=== PATIENT | male | born 1955 | race Caucasian/White ===

== ENCOUNTER 2018-04-15 10:38 | Emergency (ER) | payer BC, OTHER ==
[2018-04-15 11:08] VITALS: BP 153/103
--- NOTE | 2018-04-15 12:16 | UC ---
Shoulder Pain HPI - HPI Summary HPI Summary: 62 year old male presents with onset of posterior left shoulder pain last evening. Describes pain constant "ache" located in the scapular region. Pain does worsen with movement. States became more "bothersome" during the night and felt as if pain radiated through to mid chest and down left arm however this pain resolved on its own. Denies fever, chills, palpitations, cough, shortness of breath, diaphoresis, abdominal pain, nausea, vomiting, calf pain or swelling. He denies any injury however does report recently working with a [employer]. He also relates several recent flight to [place] [employer]. - History of Current Complaint Chief Complaint: UCUpperExtremity Stated Complaint: SHOULDER PAIN DOWN BACK Time Seen by Provider: 04/15/18 11:49 Hx Obtained From: Patient Onset/Duration: Sudden Onset, Lasting Hours Timing: Constant Severity Currently: Moderate Pain Intensity: 5 Character: Aching Aggravating Factor(s): Movement Alleviating Factor(s): Nothing - Allergies/Home Medications Allergies/Adverse Reactions: Allergies Allergy/AdvReac Type Severity Reaction Status Date / Time No Known Allergies Allergy Verified 04/15/18 12:55 PMH/Surg Hx/FS Hx/Imm Hx Previously Healthy: Yes - Denies signifcant PMH - Surgical History Surgical History: Yes Surgery Procedure, Year, and Place: hernia - Family History Known Family History: Positive: Cardiac Disease, Hypertension Negative: Blood Disorder - Social History Occupation: Employed Full-time Lives: With Family Alcohol Use: Occasionally Substance Use Type: Marijuana Smoking Status (MU): Never Smoked Tobacco Review of Systems Constitutional: Negative Skin: Negative Respiratory: Negative Cardiovascular: Chest Pain Gastrointestinal: Negative Motor: Negative Neurovascular: Negative Musculoskeletal: Other: - See HPI Is Patient Immunocompromised?: No All Other Systems Reviewed And Are Negative: Yes Physical Exam Triage Information Reviewed: Yes Appearance: Well-Appearing, No Pain Distress, Well-Nourished Vital Signs: Initial Vital Signs Temp 98 F 04/15/18 11:02 Pulse 76 04/15/18 11:02 Resp 16 04/15/18 11:02 BP 153/103 04/15/18 11:02 Pulse Ox 99 04/15/18 11:02 Vital Signs Reviewed: Yes Neck: Positive: Supple, Nontender, No Lymphadenopathy Respiratory: Positive: Chest non-tender, Lungs clear, Normal breath sounds, No respiratory distress Cardiovascular: Positive: RRR, No Murmur, Pulses Normal, Brisk Capillary Refill Abdomen Description: Positive: Nontender, No Organomegaly, Soft. Negative: Distended, Guarding Musculoskeletal: Positive: Strength Intact, ROM Intact, Other: - Tenderness left scapula. Full ROM with mild pain. Neurological: Positive: Alert Skin Exam: Normal Shoulder Course/Dx - Course Course Of Treatment: 62 year old male presents with onset of left scapular back pain that worsened and radiated into chest and left arm during the night. States the chest and arm pain resolved but back pain has persisted. Exam was unremarkable except for mild left scapular tenderness and mildly painful ROM and hypertension. EKG NSR. Patient has family history of CAD and recent multiple long flights to [place]. I suspect that his symptoms are musculoskeletal in origin however cannot exclude cardiopulmonary origin therefore recommending further evaluation in the ED. Patient verbalizes understanding and elects to transfer via private vehicle. - Differential Dx/Diagnosis Differential Diagnosis/HQI/PQRI: Contusion, Rotator Cuff Injury, Strain, Other - CAD Provider Diagnoses: Left shoulder pain - Physician Notification/Consults Discussed Patient Care With: PINA Jose Time Discussed With Above Provider: 12:40 Instructed by Provider To: MD Will See In ED Discharge - Sign-Out/Discharge Documenting (check all that apply): Patient Departure All imaging exams completed and their final reports reviewed: No Studies - Discharge Plan Condition: Stable Disposition: HOME-RECOMMEND TO ED Patient Education Materials: Shoulder Pain (ED) Referrals: No Primary Care Phys,NOPCP [Primary Care Provider] - Additional Instructions: With your family history of hear problems, the elevated blood pressure in the clinic today, and your recent travel I am recommending that you be evaluated further in the emergency room at this time. Go directly to the emergency room for evalution. - Billing Disposition and Condition Condition: STABLE Disposition: Home-Recommend to ED
== END 2018-04-15 12:25 | disposition home health service (06) ==
LOC: UCEAST 10:38
DX: M25.512 Pain in left shoulder (principal)
CPT/HCPCS: 93005; 99201; G0463

== ENCOUNTER 2018-04-15 12:53 | Emergency (ER) | payer BC ==
[2018-04-15 14:59] LABS: ABS Basophils 0.1 10^3/ul (0-0.2); ABS Eosinophils 0.1 10^3/ul (0-0.6); ABS Lymphocytes 2.1 10^3/ul (1.0-4.8); ABS Monocytes 0.3 10^3/ul (0-0.8); ABS Neutrophils 5.4 10^3/ul (1.5-7.7); ABS Nucleated RBC 0 10^3/ul; Eosinophil % 1.7 % (0-6); Hematocrit 45 % (42-52); Hemoglobin 15.4 g/dl (14.0-18.0); Lymphocyte % 25.7 % (25-47); Mean Corpuscular HGB Conc 35 g/dl (31-36); Mean Corpuscular Hemoglobin 30 pg (27-31); Mean Corpuscular Volume 86 fL (80-94); Mean Platelet Volume 7.8 fL (7.4-10.4); Nucleated Red Blood Cells % 0.1; Platelet Count 242 10^3/ul (150-450); Red Blood Count 5.18 10^6/ul (4.00-5.40); Red Cell Distribution Width 13 % (10.5-15)
--- NOTE | 2018-04-15 15:18 | RAD ---
HISTORY: chest pain COMPARISONS: None VIEWS: 4: Frontal dual-energy and lateral views of the chest. FINDINGS: CARDIOMEDIASTINAL SILHOUETTE: The cardiomediastinal silhouette is normal. BRIDGER: The bridger are normal. PLEURA: The costophrenic angles are sharp. No pleural abnormalities are noted. LUNG PARENCHYMA: The lungs are clear. ABDOMEN: The upper abdomen is clear. There is no subphrenic gas. BONES AND SOFT TISSUES: No bone or soft tissue abnormalities are noted. OTHER: None. IMPRESSION: NO ACTIVE CARDIOPULMONARY DISEASE.
[2018-04-15 15:30] LABS: EGFR Non-African American 93.2 (>60)
--- NOTE | 2018-04-15 15:41 | ED ---
HPI Chest Pain - HPI Summary HPI Summary: A 62 y/o male presents to the ED c/o CP since 04/15/2018. He rates his pain as 6/ 10. He also states that he has left arm and shoulder pain. He states that his BP was high recently. He denies fever, chills, GERMAIN, ear pain, sore throat, blurred vision, double vision, neck pain, SOB, ABD pain, back pain, dysuria, hematuria, blood in the stool, constipation, edema, bruising, nausea, vomiting and rashes. He is a non-smoker and drinks occasionally. He admits to being anxious. - History of Current Complaint Chief Complaint: EDExtremityUpper Hx Obtained From: Patient Onset/Duration: Started Hours Ago Timing: Constant Initial Severity: Moderate Current Severity: Moderate Pain Intensity: 6 Pain Scale Used: 0-10 Numeric Chest Pain Location: Diffuse Chest Pain Radiates To:: Shoulder, Arm Associated Signs and Symptoms: Positive: Other: - arm and shoulder pain - Allergy/Home Medications Allergies/Adverse Reactions: Allergies Allergy/AdvReac Type Severity Reaction Status Date / Time No Known Allergies Allergy Verified 04/15/18 12:55 Home Medications: Home Medications Ibuprofen TAB* [Advil TAB*] 600 mg PO Q8H PRN 04/15/18 [History Confirmed ] PMH/Surg Hx/FS Hx/Imm Hx Endocrine/Hematology History: Reports: Hx Thyroid Disease - Surgical History Surgery Procedure, Year, and Place: hernia Infectious Disease History: No Infectious Disease History: Reports: Traveled Outside the [place] in Last 30 Days - [place] - Social History Alcohol Use: Daily Substance Use Type: Reports: Marijuana Smoking Status (MU): Former Smoker Review of Systems Negative: Fever, Chills Eyes: Negative - Double vision Negative: Blurred Vision ENT: Negative - Throat pain Negative: Sore Throat, Ear Ache Positive: Chest Pain Negative: Shortness Of Breath Gastrointestinal: Negative - Constipation, blood in stool Negative: Abdominal Pain, Vomiting, Nausea Negative: dysuria, hematuria Musculoskeletal: Negative - back pain Positive: Myalgia - Arm and shoulder pain. Negative: Edema Negative: Rash, Bruising Negative: Headache Positive: Anxious All Other Systems Reviewed And Are Negative: No Physical Exam - Summary Physical Exam Summary: Appearance: Alert, conversive, nontoxic appearing Skin: Warm, dry, no mottling, no rashes, no contusions HEENT: EOMI, PERRL, moist mucous membranes Neck: No masses on the neck, supple Respiratory: Clear to auscultation, breath sounds present, no rales, no rhonchi , no wheezes Cardiovascular: RRR, pulses are symmetrical in both lower and upper extremities Abdomen: Soft, non-tender Bowel Sounds: Present Musculoskeletal: No CVA tenderness, no obvious deformity, moving all extremities in a grossly normal manner Neurological: A&Ox3, CN II-XII Intact, moving all extremities symmetrically Psychiatric: anxious Triage Information Reviewed: Yes Vital Signs On Initial Exam: Initial Vitals Temp Pulse Resp BP Pulse Ox 98.3 F 79 16 150/95 100 04/15/18 12:54 04/15/18 12:54 04/15/18 12:54 04/15/18 12:54 04/15/18 12:54 Vital Signs Reviewed: Yes Diagnostics - Vital Signs Vital Signs Temp Pulse Resp BP Pulse Ox 04/15/18 14:53 98.3 F 68 16 150/99 98 04/15/18 12:54 98.3 F 79 16 150/95 100 - Laboratory Lab Results: Lab Results 04/15/18 04/15/18 Range/Units 14:50 14:50 WBC 8.0 (3.5-10.8) 10^3/ul RBC 5.18 (4.00-5.40) 10^6/ul Hgb 15.4 (14.0-18.0) g/dl Hct 45 (42-52) % MCV 86 (80-94) fL MCH 30 (27-31) pg MCHC 35 (31-36) g/dl RDW 13 (10.5-15) % Plt Count 242 (150-450) 10^3/ul MPV 7.8 (7.4-10.4) fL Neut % (Auto) 67.0 (38-83) % Lymph % (Auto) 25.7 (25-47) % [place] % (Auto) 4.3 (0-7) % Eos % (Auto) 1.7 (0-6) % Baso % (Auto) 1.3 (0-2) % Absolute Neuts (auto) 5.4 (1.5-7.7) 10^3/ul Absolute Lymphs (auto) 2.1 (1.0-4.8) 10^3/ul Absolute Monos (auto) 0.3 (0-0.8) 10^3/ul Absolute Eos (auto) 0.1 (0-0.6) 10^3/ul Absolute Basos (auto) 0.1 (0-0.2) 10^3/ul Absolute Nucleated RBC 0 10^3/ul Nucleated RBC % 0.1 Sodium 139 (135-145) mmol/L Potassium 4.2 (3.5-5.0) mmol/L Chloride 106 (101-111) mmol/L Carbon Dioxide 27 (22-32) mmol/L Anion Gap 6 (2-11) mmol/L BUN 17 (6-24) mg/dL Creatinine 0.84 (0.67-1.17) mg/dL Est GFR ( Amer) 112.8 (>60) Est GFR (Non-Af Amer) 93.2 (>60) BUN/Creatinine Ratio 20.2 H (8-20) Glucose 102 H (70-100) mg/dL Calcium 9.2 (8.6-10.3) mg/dL Total Bilirubin 0.60 (0.2-1.0) mg/dL AST 16 (13-39) U/L ALT 24 (7-52) U/L Alkaline Phosphatase 48 (34-104) U/L Troponin I 0.00 (<0.04) ng/mL Total Protein 6.7 (6.4-8.9) g/dL Albumin 4.3 (3.2-5.2) g/dL Globulin 2.4 (2-4) g/dL Albumin/Globulin Ratio 1.8 (1-3) Lipase 18 (11.0-82.0) U/L TSH Pending Result Diagrams: 04/15/18 14:50 04/15/18 14:50 Lab Statement: Any lab studies that have been ordered have been reviewed, and results considered in the medical decision making process. - Radiology CXR Radiology Interpretation Completed By: Radiologist - No active cardiopulmonary disease. This report has been reviewed by the ED physician. - EKG 14:28 Cardiac Rate: NL - 61 bpm EKG Rhythm: Sinus Rhythm Summary of EKG Findings: normal QRS, normal QTc, normal axis, normal ST/T wave Chest Pain Course/Dx - Course Course Of Treatment: A 62 y/o male presents to the ED c/o CP since 04/15/2018. He also states that he has left arm and shoulder pain. His EKG and CXR were both normal. He will be diagnosed with Chest Pain and Shoulder Pain. He will be discharged and is agreeable to this plan. - Diagnoses Provider Diagnoses: Chest pain, Shoulder pain Discharge - Sign-Out/Discharge Documenting (check all that apply): Patient Departure - DC - Discharge Plan Condition: Stable Disposition: HOME Patient Education Materials: Chest Pain (ED), Shoulder Pain (ED) Referrals: No Primary Care Phys,NOPCP [Primary Care Provider] - Additional Instructions: take tylenol and motrin for pain. take 81mg of aspirin daily for good heart health. return if worse or any new symptoms. - Attestation Statements Document Initiated by Scribe: Yes Documenting Scribe: Prasanna Reyes Provider For Whom Scribe is Documenting (Include Credential): Margarita Lucas MD Scribe Attestation: IPrasanna, scribed for Margarita Lucas MD on 04/15/18 at 2131.
[2018-04-15 17:14] VITALS: BP 159/99
== END 2018-04-15 17:13 | disposition home or self-care (01) ==
LOC: ED 12:53
DX: R07.9 Chest pain, unspecified (principal); M25.512 Pain in left shoulder; F41.9 Anxiety disorder, unspecified
CPT/HCPCS: 36415; 71046; 80053; 83690; 84443; 84484; 85025; 93005; 99282; 99283